=== PATIENT | female | born 1985 | race Caucasian/White ===

== ENCOUNTER → 2017-01-23 | Outpatient (CLI) | payer SELFPAY ==
[~2017-01-23] MED LIST: CLIN300C PO; DEXA4TA PO; PERCOCET PO; no medications
--- NOTE | 2017-01-23 17:29 | REP ---
RIGHT 5TH FINGER SERIES: 01/23/2017: Clinical history: Blunt trauma after slamming finger in car door. Findings: Four views provided. There is no visible fracture, avulsion, subluxation or focal bone lesion of the phalanges or metacarpal of the 5th digit. Some swelling may be present but no radiopaque foreign body. Impression: There is no fracture, avulsion or other acute bony finding about the right 5th finger. Unreviewed
== END ==
LOC: M ADAMS 10:51
PROVIDERS: ATTEND Physician Assistant
DX: M79.644 Pain in right finger(s) (principal)

== ENCOUNTER → 2017-10-16 | Outpatient (REF) | payer OTHER ==
[2017-10-16 12:43] LABS: BASO % 0.3 % (0.0-1.0); EOS # 0.1 10^3/uL (0.0-0.50); EOS % 1.3 % (0.0-3.0); HEMATOCRIT 42.9 % (36.0-47.0); HEMOGLOBIN 14.4 g/dl (12.0-16.0); IMMATURE GRANULOCYTE % 0.4 % (0-3.0); LYMPH # 2.4 10^3/uL (1.5-4.5); LYMPH % 24.2 % (24.0-44.0); MEAN CORPUSCULAR HEMOGLOBIN 31.9 pg (27.0-33.0); MEAN CORPUSCULAR HGB CONC 33.6 g/dl (32.0-36.5); MEAN CORPUSCULAR VOLUME 95.1 fl (80.0-96.0); MONO # 0.7 10^3/uL (0.0-0.8); MONO % 7.2 % (0.0-5.0); NEUTROPHILS # 6.6 10^3/uL (1.8-7.7); NEUTROPHILS % 66.6 % (36.0-66.0); PLATELET COUNT, AUTOMATED 206 10^3/uL (150-450); RED BLOOD COUNT 4.51 10^6/uL (4.00-5.40); RED CELL DISTRIBUTION WIDTH 12.2 % (11.5-14.5); WHITE BLOOD COUNT 9.9 10^3/uL (4.0-10.0)
[2017-10-16 13:29] LABS: ANION GAP 6 MEQ/L (8-16); BLOOD UREA NITROGEN 11 MG/DL (7-18); CALCIUM LEVEL 9.4 MG/DL (8.5-10.1); CARBON DIOXIDE LEVEL 30 MEQ/L (21-32); CHLORIDE LEVEL 104 MEQ/L (98-107); CREATININE FOR GFR 0.74 MG/DL (0.55-1.30); GLOMERULAR FILTRATION RATE > 60.0 (>60); GLUCOSE, FASTING 68 MG/DL (70-100); HCG, SERUM QUANTITATIVE < 1.0 MIU/ML; POTASSIUM SERUM 4.2 MEQ/L (3.5-5.1); SODIUM LEVEL 140 MEQ/L (136-145)
== END ==
LOC: M LAB REF 12:21
DX: R10.30 Lower abdominal pain, unspecified (principal)
CPT/HCPCS: 84702

== ENCOUNTER → 2018-11-12 | Outpatient (CLI) | payer OTHER ==
[~2018-11-12] MED LIST changes: +ONDA4TAB6 PO; +OXYC1TAB23 PO; -PERCOCET PO
--- NOTE | 2018-11-12 12:48 | REP ---
OBSTETRIC SONOGRAPHY: HISTORY: Supervision of , for anatomy. FINDINGS: Scanning through the gravid uterus demonstrates a viable single intrauterine gestation in a footling breech lie. motion is observed and heart rate is recorded at 144 beats per minute. A posterior grade 1 placenta is seen without evidence of previa or abruption. Amniotic fluid is subjectively normal. Closed cervical length measures 4.2 cm, viewed transabdominally. No extrauterine abnormalities served. There has been appropriate interval growth of the fetus. Small bilateral choroid plexus cysts are seen. There is an echogenic focus within the left ventricle likely chordae tendineae. No other abnormality is observed. The following anatomic structures are identified today and felt to be unremarkable: cranium, cavum, cerebellum and posterior fossa, face and profile, lungs, four-chamber heart with left and right ventricular outflow tract views, diaphragm, left-sided stomach, abdominal wall cord insertion, three-vessel umbilical cord, kidneys and bladder, spine, upper and lower extremities. Biometry Chart: BPD 4.5 cm = 19 weeks 4 days HC 16.7 cm = 19 weeks 3 days AC 13.6 cm = 19 weeks 1 day FL 3.1 cm = 19 weeks 3 days HL 3.0 cm = 19 weeks 5 days CD 2.0 cm = 19 weeks 1 day HC/AC ratio normal 1.23 Cephalic index normal 0.74 Estimated weight 284 grams, 0 pounds 10 ounces, 26th percentile for 19 weeks 6 days. IMPRESSION: Viable single intrauterine gestation 19 weeks 1 day by today's composite sonographic criteria. Expected gestational age estimate based on prior sonography is 19 weeks 6 days. MARÍA by prior sonography April 02, 2019. Small bilateral choroid plexus cysts are noted. Electronically Signed by Hector Ernst MD 11/12/2018 01:10 P
== END ==
LOC: M SMT 10:25
PROVIDERS: ATTEND Advanced Practice Midwife
DX: O32.8XX0 Maternal care for other malpresentation of fetus, not applicable or unspecified (principal); Z3A.20 20 weeks gestation of pregnancy; Z3A.19 19 weeks gestation of pregnancy

== ENCOUNTER → 2018-12-29 | Outpatient (CLI) | payer OTHER ==
[2018-12-29 18:42] LABS: HEMATOCRIT 32.9 % (36.0-47.0); HEMOGLOBIN 10.7 g/dl (12.0-15.5); MEAN CORPUSCULAR HEMOGLOBIN 31.5 pg (27.0-33.0); MEAN CORPUSCULAR HGB CONC 32.5 g/dl (32.0-36.5); MEAN CORPUSCULAR VOLUME 96.8 fl (80.0-96.0); PLATELET COUNT, AUTOMATED 206 10^3/uL (150-450)
== END ==
LOC: M SMT 13:52
PROVIDERS: ATTEND Obstetrics & Gynecology
DX: O99.89 Other specified diseases and conditions complicating pregnancy, childbirth and the puerperium (principal); Z3A.00 Weeks of gestation of pregnancy not specified

== ENCOUNTER → 2019-01-11 | Outpatient (CLI) | payer OTHER ==
--- NOTE | 2019-01-12 05:09 | REP ---
Clinical: Anatomical evaluation. Comparison: 11/12/2018 . Findings: Examination demonstrates a single live intrauterine in cephalic presentation. motion is identified by technologist. Placenta is noted posterior fundal and grade one without evidence for placenta previa or abruption. Amniotic fluid volume is normal. Cervix measures 5.5 cm in length and appears closed. No evidence for nuchal cord. Gestational age by LMP 28 weeks 3 days with MARÍA 04/02/2019 . Gestational age by current measurements 28 weeks 2 days with MARÍA 04/03/2019 . FHR equals 151 beats per minute. Estimated weight 1172 grams ( 34th percentile). Amniotic fluid index: 12.4 cm Umbilical cord SD ratio: 3.39 Anatomical assessment demonstrates normal structures including cranium, choroid plexus, cavum, cerebellum/posterior fossa, facial features, diaphragm, stomach, cord insertion/three-vessel cord, kidneys/bladder, spine, and lower extremities. Impression: Single live intrauterine in cephalic presentation demonstrating appropriate interval growth. In conjunction with prior examination anatomical assessment is complete and normal. Previously identified choroid plexus cysts resolved. Electronically Signed by Thomas Espinoza MD 01/12/2019 05:01 A
== END ==
LOC: M RAD 14:22
PROVIDERS: ATTEND Obstetrics & Gynecology
DX: O26.843 Uterine size-date discrepancy, third trimester (principal); Z3A.28 28 weeks gestation of pregnancy

== ENCOUNTER 2019-02-16 11:25 | Emergency (ER) | payer OTHER ==
[~2019-02-16] VITALS: Ht 165.1 cm; Wt 82.3 kg
[2019-02-16 11:26] VITALS: BP 113/74
== END 2019-02-16 14:02 | disposition left against medical advice (07) ==
LOC: M ED 11:25
DX: Z53.29 Procedure and treatment not carried out because of patient's decision for other reasons (principal)

== ENCOUNTER → 2019-03-10 | Outpatient (REF) | payer OTHER | LOC: M LAB REF 13:05 | PROVIDERS: ATTEND Advanced Practice Midwife | DX: Z34.03 Encounter for supervision of normal first pregnancy, third trimester (principal) ==

== ENCOUNTER → 2019-03-12 | Outpatient (CLI) | payer OTHER ==
[~2019-03-12] MED LIST changes: +PREN1TAB15
== END ==
LOC: M SMT 14:56
PROVIDERS: ATTEND Advanced Practice Midwife
DX: Z34.03 Encounter for supervision of normal first pregnancy, third trimester (principal); Z3A.00 Weeks of gestation of pregnancy not specified

== ENCOUNTER 2019-03-20 10:52 | Emergency (ER) | payer OTHER ==
[~2019-03-20] VITALS: Ht 165.1 cm; Wt 83.6 kg
[~2019-03-20 10:52] MED LIST changes: -PREN1TAB15
[2019-03-20] MEDS ORDERED: PREN1TAB15 (10:57)
[2019-03-20 13:18] VITALS: BP 111/77
== END 2019-03-20 13:42 | disposition home or self-care (01) ==
LOC: M ED 10:52
DX: H66.91 Otitis media, unspecified, right ear (principal); J06.9 Acute upper respiratory infection, unspecified; J45.909 Unspecified asthma, uncomplicated

== ENCOUNTER → 2019-03-26 | Outpatient (CLI) | payer OTHER ==
[~2019-03-26] MED LIST changes: +PREN1TAB15
--- NOTE | 2019-03-26 11:17 | REP ---
OBSTETRIC SONOGRAPHY: HISTORY: Supervision of growth study. FINDINGS: Scanning through the gravid uterus demonstrates a viable single intrauterine gestation in a cephalic lie. motion is observed and heart rate is recorded at 137 beats per minute. A posterior fundal grade 2 placenta is seen without evidence of previa. Amniotic fluid is subjectively normal. Closed cervical length measured transabdominally is 3.2 cm. No extrauterine abnormalities observed. There has been appropriate interval growth. The following anatomic structures are again identified and felt to be unremarkable: cranium, cavum, face and profile, lungs, left and right ventricular outflow tract views, diaphragm, left-sided stomach, three-vessel cord, kidneys and bladder, spine. Biometry Chart: BPD 9.0 cm = 36 weeks 3 days HC 33.7 cm = 38 weeks 4 days AC 33.2 cm = 37 weeks 1 day FL 7.6 cm = 38 weeks 6 days HL 6.6 cm = 38 weeks 2 days HC/AC ratio normal 1.02. Cephalic index normal 0.74. Estimated weight 3263 grams, 7 pounds 3 ounces, 41st percentile for 39 weeks 0 days. NADIYA normal 11.9 cm. S/D ratio normal 2.33 IMPRESSION: Viable single intrauterine gestation at 37-week 6 days by today's composite sonographic criteria for expected gestational age estimate based on prior sonography is 38 weeks 4 days. MARÍA by prior sonography April 05, 2019. There is appropriate interval growth. Electronically Signed by Hector Ernst MD 03/26/2019 11:34 A
== END ==
LOC: M RAD 09:06
PROVIDERS: ATTEND Advanced Practice Midwife
DX: O26.843 Uterine size-date discrepancy, third trimester (principal)

== ENCOUNTER 2019-03-29 04:33 | Inpatient (IN) | payer OTHER ==
[2019-03-29] VITALS (34 sets, daily range): BP systolic 86–137; BP diastolic 52–94
[~2019-03-29] VITALS: Ht 165.1 cm; Wt 84.4 kg
[2019-03-29 06:13] LABS: HEMATOCRIT 34.9 % (36.0-47.0); HEMOGLOBIN 11.7 g/dl (12.0-15.5); MEAN CORPUSCULAR HEMOGLOBIN 31.6 pg (27.0-33.0); MEAN CORPUSCULAR HGB CONC 33.5 g/dl (32.0-36.5); MEAN CORPUSCULAR VOLUME 94.3 fl (80.0-96.0); PLATELET COUNT, AUTOMATED 197 10^3/uL (150-450); WHITE BLOOD COUNT 14.1 10^3/uL (4.0-10.0)
[2019-03-29] MEDS ORDERED: LR 1,000 ML IV SCH (07:11)
[2019-03-29] MEDS ORDERED: OXYTOCIN DRIP 30 UNITS in APPROPRIATE DILUENT 1 EA IV SCH (07:15)
--- NOTE | 2019-03-29 07:21 | HPE ---
DATE OF ADMISSION: 03/29/2019 33-year-old 5, para 3-0-1-3 female at 39-3/7 weeks gestation by 9 week ultrasound, estimated date of confinement (EDC) of 04/02/2019, presents with contractions every 3-4 minutes, starting at 1:00 a.m. on the day of admission. The contractions are increased in intensity. She denies vaginal bleeding. She denies loss of fluids. There is good movement. COURSE: The patient initiated care at 9 weeks gestation on 09/01/2018. Her first trimester blood pressure was 118/68. She had no complications. OBSTETRICAL HISTORY: 1. 2004 at 40 weeks, vaginal delivery, 6 pound 4 ounce female . 2. 2006 at 40 weeks, vaginal delivery, 6 pound 7 ounce female . 3. 2006 miscarriage. 4. 2010 at 40 weeks, vaginal delivery, 8 pound 3 ounce male . MEDICAL HISTORY: 1. Mild asthma. SURGICAL HISTORY: None. ALLERGIES: None. SOCIAL HISTORY: The patient lives in [place]. The father of the baby is involved. The patient smokes cigarettes. She has decreased her cigarette use during . She denies alcohol or drug use. FAMILY HISTORY: Noncontributory. PHYSICAL EXAMINATION: Blood pressure 124/74, pulse 84, she appears mildly uncomfortable. Head and neck exam normal. Lungs clear. Heart regular rate and rhythm. Abdomen nontender. heart tone category 1. Cervix 2-3 cm, 50%, -2, posterior, soft. Contractions every 2-3 minutes. Extremities nontender. LABS: Blood type O positive. Rubella immune. RPR nonreactive. She was Group B Streptococcus (GBS) negative on 03/12/2019. ASSESSMENT: 33-year-old G5, P3-0-1-3 female at 39-3/7 weeks gestation by 9 week ultrasound who presents in early labor. PLAN: Patient is admitted on 03/29/2019.
[2019-03-29] MEDS: miSOPROStol 50 MCG 1/2 TAB (S0191) PO SCH ×4 (07:50→19:24)
--- NOTE | 2019-03-29 18:17 | IPNPDOC ---
Obstetrical Progress Note Date of Service Mar 29, 2019 Subjective Patient reports she feels some contractions. Coping well with contractions. Objective Vital Signs Date Time Temp Pulse Resp B/P (MAP) Pulse Ox O2 Delivery O2 Flow Rate FiO2 03/29/19 09:07 99.2 78 16 121/77 (92) Assessment Heart Rate (FHR): 150 Variability: Moderate Accelerations: Positive Decelerations: None Heart Rate Tracing: Category I Tocometer Contractions: Yes Frequency: regular Sterile Vaginal Examination Dilation: 3 cm Effacement (%): 50% Station: -2 Cervical Consistency: Soft Cervical Position: Middle Postion/Presentation: Cephalic presentation Assessment and Plan EGA at Admission: 39.3 Status: Reassuring Group B Streptococcus: Negative Anticipate: Vaginal Delivery Additional Comments Patient was started on IV Pitocin at 1600. Will continue to increase as needed to achieve appropriate contractions. KEVIN MARY CNM Mar 29, 2019 18:17
--- NOTE | 2019-03-29 21:02 | IPNPDOC ---
Obstetrical Progress Note Date of Service Mar 29, 2019 Subjective Patient reports she only feels a few contractions. Objective Vital Signs Date Time Temp Pulse Resp B/P (MAP) Pulse Ox O2 Delivery O2 Flow Rate FiO2 03/29/19 19:57 94 111/78 (89) 03/29/19 19:29 98.3 16 Assessment Heart Rate (FHR): 135 Variability: Moderate Accelerations: Positive Decelerations: None Heart Rate Tracing: Category I Tocometer Contractions: Yes Frequency: regular, other (2-4 minutes) Sterile Vaginal Examination Dilation: 4 cm Effacement (%): other (75%) Station: -2 Cervical Consistency: Soft Cervical Position: Anterior Postion/Presentation: Cephalic presentation Assessment and Plan EGA at Admission: 39.3 Status: Reassuring Group B Streptococcus: Negative Anticipate: Vaginal Delivery Additional Comments IV Pitocin is at 10 mu/min. AROM to a small amount of clear fluid. KEVIN MARY CNM Mar 29, 2019 21:02
[2019-03-29] MEDS ORDERED: FENTANYL 2MCG/ML ROPIVACAINE 0.2% IN 0.9% NACL 100ML IVBAG As Ordered ONE (21:15)
[2019-03-29] MEDS ORDERED: FENTANYL/ROPIVACAINE/NACL BAG 100 ML EPIDURAL SCH (22:30)
[2019-03-29] MEDS ORDERED: NALOXONE INJ 0.4 MG/1 ML VIAL (J2310) IV PRN (22:30)
[2019-03-29] MEDS ORDERED: diphenhydrAMINE INJ 50MG/ML VIAL (J1200) IV PRN (22:30)
[2019-03-29] MEDS ORDERED: EPIDURAL COMMENT XX SCH (22:30)
[2019-03-29] MEDS ORDERED: REFRIGERATOR IV KEYS XX PRN (22:30)
[2019-03-29] MEDS ORDERED: LACTATED RINGER'S 1000 ML IV PRN (22:30)
[2019-03-29] MEDS ORDERED: ONDANSETRON 4MG/2ML VIAL (J2405) IV PRN (22:30)
[2019-03-29] MEDS ORDERED: ePHEDrine SULFATE 25 MG/5 ML(5MG/ML) SYRINGE IV PRN (22:30)
[2019-03-29] MEDS ORDERED: EPIDURAL/PCA KEYS XX PRN (22:30)
[2019-03-30] VITALS (7 sets, daily range): BP systolic 104–139; BP diastolic 57–83
[2019-03-30] MEDS: miSOPROStol 50 MCG 1/2 TAB (S0191) PO SCH
[2019-03-30] MEDS ORDERED: OXYTOCIN DRIP 30 UNITS in APPROPRIATE DILUENT 1 EA IV SCH (01:46)
[2019-03-30] MEDS ORDERED: IBUPROFEN 800 MG TAB PO PRN (02:00)
[2019-03-30] MEDS ORDERED: ANUSOL HC CREAM 30GM TOP PRN (02:00)
[2019-03-30] MEDS ORDERED: DOCUSATE SODIUM 100 MG CAP PO PRN (02:00)
[2019-03-30] MEDS ORDERED: ACETAMINOPHEN TAB 650MG DOSE (2X325MG) PO PRN (02:00)
[2019-03-30] MEDS ORDERED: IBUPROFEN 600 MG TAB PO PRN (02:00)
[2019-03-30] MEDS ORDERED: DIBUCAINE 1% OINTMENT 30GM TOP PRN (02:00)
[2019-03-30] MEDS ORDERED: RHOGAM 300 MCG (1500 IU) INJ (J2790) IM SCH (02:00)
[2019-03-30] MEDS ORDERED: METHYLERGONOVINE MALEATE 0.2 MG TAB PO PRN (02:00)
[2019-03-30] MEDS ORDERED: MEASLES,MUMPS,RUBELLA VACCINE INJ (MMR-II) (90707) SC SCH (02:00)
[2019-03-30] MEDS: PRENATAL VITAMINS CHEWABLE TABLET PO SCH (08:00)
[2019-03-30] MEDS: ACETAMINOPHEN 500 MG TAB PO PRN ×2 (08:01→17:27)
[2019-03-30] MEDS ORDERED: oxyCODONE 5MG TAB PO ONE (14:00)
[2019-03-30] MEDS ORDERED: KETOROLAC 30 MG/ML VIAL (J1885) IV SCH (14:00)
[2019-03-30] MEDS: KETOROLAC 30 MG/ML VIAL (J1885) IV SCH ×2 (14:03→19:49)
--- NOTE | 2019-03-30 19:42 | DN ---
DATE: 03/30/2019 DELIVERY DATE AND TIME: 03/30/2019 at 0112 STATUS: Delivered. Spontaneous vaginal delivery. PROVIDER: Denise López CNM, WHNP ANESTHESIA: Epidural. ESTIMATED BLOOD LOSS: 300 mL. FINDINGS: Female, 7 pounds, 6 ounces, 3340 grams, scores 9/10. The patient is a 33-year-old female who is now a 5, para 4-0-1-4 at 39 weeks and three days gestation who presented to labor and delivery with complaints of strong regular contractions. Her labor was augmented with Cytotec and IV pitocin. She received an epidural for pain management. The patient progressed to fully dilated at 0047 and pushed to a living female in the right occiput anterior (KIRIT) position with restitution to right occiput transverse (ROT). The anterior shoulder delivered with ease and the corpus immediately followed. The baby was placed on the maternal abdomen active and crying. The cord was clamped times two after one minute and cut by the father of the baby. A three-vessel cord was noted. The placenta delivered spontaneously and intact at 0119. Uterine hemostasis was achieved via rapid infusion of IV pitocin and fundal massage. The vagina, cervix, and perineum were inspected and found to have a small first-degree laceration that was repaired with a 3-[address]-1. Mother plans to breastfeed and formula feed her . All sponges and instruments were counted and correct. Both mother and baby are in stable condition.
[2019-03-31] MEDS: KETOROLAC 30 MG/ML VIAL (J1885) IV SCH (02:50)
[2019-03-31] MEDS: ACETAMINOPHEN 500 MG TAB PO PRN (05:40)
[2019-03-31 05:49] VITALS: BP 111/79
[2019-03-31] MEDS: PRENATAL VITAMINS CHEWABLE TABLET PO SCH (08:08)
[2019-03-31] MEDS ORDERED: IBUPROFEN 800 MG TAB PO SCH (09:00)
== END 2019-03-31 11:50 | disposition home or self-care (01) | DRG 560 ==
LOC: M LDO 04:33 → M LDI 05:36 → M OBS 03-30 03:40
PROVIDERS: ADMIT Specialist; ATTEND Advanced Practice Midwife
PROC: 10E0XZZ Delivery of Products of Conception, External Approach (ICD-10-PCS; principal; 2019-03-30)
PROC: 0HQ9XZZ Repair Perineum Skin, External Approach (ICD-10-PCS; 2019-03-30)
DX: O99.334 Smoking (tobacco) complicating childbirth (principal); Z3A.39 39 weeks gestation of pregnancy; Z37.0 Single live birth; F17.210 Nicotine dependence, cigarettes, uncomplicated; O70.0 First degree perineal laceration during delivery

== ENCOUNTER → 2022-04-17 | Outpatient (CLI) | payer OTHER ==
[2022-04-17 13:46] LABS: C REACTIVE PROTEIN QUANTITATIV 0.62 MG/DL (0.00-0.30); RHEUMATOID FACTOR QUANT < 10.0 IU/ML (<15.0)
[2022-04-18 20:07] LABS: ANA (HEP2) Negative (.)
== END ==
LOC: M WUC 08:58
PROVIDERS: ATTEND Nurse Practitioner Family
DX: M25.532 Pain in left wrist (principal)

== ENCOUNTER → 2022-07-30 | Outpatient (CLI) | payer OTHER | LOC: M RAD 06-25 08:06 | PROVIDERS: ATTEND Orthopaedic Surgery Hand Surgery | DX: M25.532 Pain in left wrist (principal); R60.0 Localized edema; M79.89 Other specified soft tissue disorders ==

== ENCOUNTER → 2023-06-25 | Outpatient (REF) | payer OTHER ==
[2023-06-25 15:06] LABS: URIC ACID 4.3 MG/DL (3.1-7.8)
[2023-06-25 15:07] LABS: BASO % 0.4 % (0.0-1.0); EOS # 0.3 10^3/uL (0.0-0.5); EOS % 3.5 % (0.0-3.0); HEMATOCRIT 39.5 % (36.0-47.0); HEMOGLOBIN 12.7 g/dl (12.0-15.5); LYMPH # 2.1 10^3/uL (1.5-5.0); LYMPH % 21.6 % (24.0-44.0); MEAN CORPUSCULAR HEMOGLOBIN 30.3 pg (27.0-33.0); MEAN CORPUSCULAR HGB CONC 32.2 g/dl (32.0-36.5); MEAN CORPUSCULAR VOLUME 94.3 fl (80.0-96.0); MONO # 0.6 10^3/uL (0.0-0.8); MONO % 6.2 % (2.0-8.0); NEUTROPHILS # 6.7 10^3/uL (1.5-8.5); PLATELET COUNT, AUTOMATED 257 10^3/uL (150-450); RED BLOOD COUNT 4.19 10^6/uL (4.00-5.40); WHITE BLOOD COUNT 9.8 10^3/uL (4.0-10.0)
[2023-06-25 15:09] LABS: ALBUMIN 3.2 G/DL (3.2-5.2); ALKALINE PHOSPHATASE 83 U/L (46-116); ALT/SGPT 25 U/L (7.0-40); AST/SGOT 18 U/L (<34); BILIRUBIN,TOTAL 0.3 MG/DL (0.3-1.2); BLOOD UREA NITROGEN 8 MG/DL (9-23); CALCIUM LEVEL 8.3 MG/DL (8.5-10.1); CARBON DIOXIDE LEVEL 25 MMOL/L (20-31); CHLORIDE LEVEL 107 MMOL/L (98-107); CREATININE FOR GFR 0.81 MG/DL (0.55-1.30); GLOMERULAR FILTRATION RATE > 60.0 (>60); GLUCOSE, FASTING 112 MG/DL (60-100); POTASSIUM SERUM 4.3 MMOL/L (3.5-5.1); SODIUM LEVEL 141 MMOL/L (136-145); TOTAL PROTEIN 6.5 G/DL (5.7-8.2)
[2023-06-25 15:29] LABS: ERYTHROCYTE SEDIMENTATION RATE 22 mm/hr (0-20)
== END ==
LOC: M LABDRWAD 13:12
PROVIDERS: ATTEND Nurse Practitioner Family
DX: M79.672 Pain in left foot (principal); E66.9 Obesity, unspecified; L03.116 Cellulitis of left lower limb

== ENCOUNTER → 2023-12-23 | Outpatient (REF) | payer OTHER | LOC: M LAB REF 17:35 | PROVIDERS: ATTEND Family Medicine | DX: Z12.4 Encounter for screening for malignant neoplasm of cervix (principal); R87.5 Abnormal microbiological findings in specimens from female genital organs ==

== ENCOUNTER → 2024-09-17 | Outpatient (CLI) | payer OTHER ==
[~2024-09-17] MED LIST changes: +ONDA-282 PO; -ONDA4TAB6 PO
== END ==
LOC: M PLAIMG 09:41
PROVIDERS: ATTEND Nurse Practitioner Family
DX: M54.6 Pain in thoracic spine (principal); M54.50 Low back pain, unspecified